=== PATIENT | female | born 1950 | race African-American/Black ===

== ENCOUNTER → 2022-03-11 | Day surgery (SDC) | payer MEDICARE, OTHER ==
[~2022-03-11] VITALS: Ht 157.5 cm; Wt 59.5 kg
[~2022-03-11] MED LIST: ALENDRONATE SOD70 MG PO; AMLODIPINE BESY10 MG PO; ASPIRIN81 MG PO; BENICAR20 MG PO; CERTAGEN1 EACH PO; CHLORTHALIDONE25 MG PO; CLARITIN10 MG PO; COLACE100 MG PO; ISOSORBIDE MONO30 MG PO; LOPRESSOR25 MG PO; PEPCID AC20 MG PO; PRAVACHOL20 MG PO; PROTONIX 40MG T40 MG PO; SUCRALFATE1 GM/10 ML PO; TAPAZOLE5 MG PO; VITAMIN D350 MCG PO
== END | disposition home or self-care (01) ==
LOC: FAS 09:29
DX: K31.7 Polyp of stomach and duodenum (principal); K21.00 Gastro-esophageal reflux disease with esophagitis, without bleeding; K29.50 Unspecified chronic gastritis without bleeding; I10 Essential (primary) hypertension; E05.90 Thyrotoxicosis, unspecified without thyrotoxic crisis or storm; E78.00 Pure hypercholesterolemia, unspecified; Z88.8 Allergy status to other drugs, medicaments and biological substances; Z79.82 Long term (current) use of aspirin; Z79.899 Other long term (current) drug therapy; Z90.49 Acquired absence of other specified parts of digestive tract; Z72.89 Other problems related to lifestyle; Z80.0 Family history of malignant neoplasm of digestive organs
CPT/HCPCS: J2704